=== PATIENT | female | born 1990 | race Caucasian/White ===

== ENCOUNTER 2024-10-30 15:40 | Emergency (ER) | payer SELFPAY ==
[~2024-10-30] VITALS: Ht 170.1 cm; Wt 88.5 kg
[2024-10-30] MEDS ORDERED: Ondansetron Hydrochloride 4 MG TAB PO ONE (15:50)
[2024-10-30] MEDS ORDERED: Acetaminophen/Oxycodone 5 MG/325 MG TABLET PO ONE ×2 (15:50→17:45)
[2024-10-30] MEDS ORDERED: Amoxicillin/Clavulanate Pota 875 MG TAB PO ONE (15:50)
[2024-10-30] MEDS ORDERED: Tdap Vaccine 0.5 ML SYR (Adult Vaccine) IM ONE (15:50)
[2024-10-30] MEDS ORDERED: Ondansetron Hydrochloride 4 MG/2 ML VIAL IV ONE (16:50)
[2024-10-30] MEDS ORDERED: Bacitracin Zinc 14 GM TUBE T ONE (17:45)
[2024-10-30] MEDS ORDERED: Ondansetron 4 MG 2 TAB ED PACK PO SCH (17:45)
[2024-10-30] MEDS ORDERED: Ondansetron4 MG PO (17:50)
[2024-10-30] MEDS ORDERED: PERCOCET 5-3251 EACH PO (17:50)
[2024-10-30] MEDS ORDERED: AMOX-CLAV 875-1 EACH PO (17:50)
== END 2024-10-30 17:52 | disposition home or self-care (01) ==
LOC: ED 15:40
DX: S41.112A Laceration without foreign body of left upper arm, initial encounter (principal); S61.012A Laceration without foreign body of left thumb without damage to nail, initial encounter; S61.411A Laceration without foreign body of right hand, initial encounter; S61.412A Laceration without foreign body of left hand, initial encounter; W54.0XXA Bitten by dog, initial encounter; Y93.89 Activity, other specified; Y92.89 Other specified places as the place of occurrence of the external cause; Y99.8 Other external cause status